=== PATIENT | male | born 1950 | race Caucasian/White ===

== ENCOUNTER 2017-01-20 10:41 | Inpatient (IN) | payer OTHER, MEDICARE ==
[2017-01-20] MEDS ORDERED: ONDANSETRON 4 MG/2 ML VIAL IVP PRN (13:09)
[2017-01-20] MEDS ORDERED: ONDANSETRON DISINTEGRATING 4 MG TAB PO PRN (13:09)
[2017-01-20] MEDS ORDERED: ACETAMINOPHEN 325 MG TAB PO PRN (13:40)
[2017-01-20] MEDS ORDERED: diphenhydrAMINE 50 MG CAP PO PRN ×2 (13:40→14:07)
[2017-01-20] MEDS ORDERED: predniSONE 20 MG TAB PO PRN (13:40)
[2017-01-20] MEDS ORDERED: methylPREDNISolone SOD SUCC 125 MG/2 ML VIAL IVP PRN (13:40)
[2017-01-20] MEDS ORDERED: NS 1,000 ML IV SCH (13:45)
[2017-01-20] MEDS: NS 1,000 ML IV SCH ×2 (13:46→20:23)
[2017-01-20] MEDS ORDERED: diphenhydrAMINE 25 MG CAP PO PRN (14:10)
--- NOTE | 2017-01-20 14:23 | CPEKG ---
Heart Rate: 70 RR Interval: 857 P-R Interval: 172 QRSD Interval: 100 QT Interval: 376 QTC Interval: 406 P [place]: 46 QRS [place]: 2 T Wave [place]: -3 EKG Severity - BORDERLINE ECG - EKG Impression: SINUS RHYTHM EKG Impression: BORDERLINE T ABNORMALITIES, INFERIOR LEADS Electronically Signed By: Luke Interiano 20-Jan-2017 17:58:30
[2017-01-20] MEDS: CALCITONIN 200 UNITS/ML SYR SC SCH ×2 (14:29→21:19)
[2017-01-20] MEDS: HEPARIN 5,000 UNIT/0.5 ML SYR SC SCH ×2 (14:30→21:17)
[2017-01-20] MEDS: predniSONE 20 MG TAB PO SCH (14:36)
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
[2017-01-20] MEDS ORDERED: traZODone 50 MG TAB PO PRN (21:27)
[2017-01-20] MEDS: ACETAMINOPHEN 325 MG TAB PO PRN (23:19)
[2017-01-21] MEDS: ACETAMINOPHEN 325 MG TAB PO PRN ×2 (03:14→10:11)
[2017-01-21] MEDS: NS 1,000 ML IV SCH ×3 (03:16→22:11)
[2017-01-21 05:58] LABS: HEMATOCRIT 36.6 % (40.0-51.0); HEMOGLOBIN 11.8 g/dL (13.7-17.5); MEAN CELL HEMOGLOBIN 27.6 pg (27.9-34.1); MEAN CELL HEMOGLOBIN CONCENTR. 32.2 g/dL (32.4-36.7); MEAN CELL VOLUME 85.7 fL (81.5-99.8); RED BLOOD CELL COUNT 4.27 10^6/uL (4.40-6.38); RED CELL DISTRIBUTION WIDTH 12.9 % (11.5-15.2)
[2017-01-21 06:06] LABS: ALANINE AMINOTRANSFERASE 26 IU/L (21-72); ALBUMIN 3.8 g/dL (3.5-5.0); ALKALINE PHOSPHATASE 72 IU/L (38-126); ANION GAP 13 mEq/L (8-16); ASPARTATE AMINOTRANSFERASE 20 IU/L (17-59); BILIRUBIN,TOTAL 0.5 mg/dL (0.1-1.4); CALCIUM 10.1 mg/dL (8.5-10.4); CARBON DIOXIDE 17 mEq/l (22-31); CHLORIDE 110 mEq/L (97-110); CREATININE 2.8 mg/dL (0.7-1.3); GLOMERULAR FILTRATION RATE 23; GLUCOSE 132 mg/dL (70-100); POTASSIUM 4.5 mEq/L (3.5-5.2); SODIUM 140 mEq/L (134-144); TOTAL PROTEIN 6.5 g/dL (6.3-8.2)
[2017-01-21] MEDS: HEPARIN 5,000 UNIT/0.5 ML SYR SC SCH ×3 (06:25→21:06)
[2017-01-21] MEDS ORDERED: NON-FORMULARY NEW DRUG (Lansoprazole [Prevacid] 15 MG) PO SCH (09:00)
[2017-01-21] MEDS: CALCITONIN 200 UNITS/ML SYR SC SCH ×2 (10:07→10:20)
[2017-01-21] MEDS: amLODIPine BESYLATE 5 MG TAB PO SCH (10:08)
[2017-01-21] MEDS: ATORVASTATIN CALCIUM 20 MG TAB PO SCH (10:08)
[2017-01-21] MEDS: METOPROLOL SUCCINATE XR 50 MG TAB PO SCH (10:09)
[2017-01-21] MEDS: PANTOPRAZOLE SODIUM 40 MG TAB PO SCH (10:11)
[2017-01-21] MEDS: predniSONE 20 MG TAB PO SCH (10:11)
[2017-01-21] MEDS: TESTOSTERONE TD SCH (10:15)
[2017-01-21] MEDS ORDERED: diphenhydrAMINE 25 MG CAP PO ONE ×3 (10:38→21:00)
[2017-01-21] MEDS ORDERED: NS 1,000 ML IV SCH (10:38)
[2017-01-21] MEDS ORDERED: diphenhydrAMINE 50 MG CAP PO PRN (10:38)
[2017-01-21] MEDS ORDERED: methylPREDNISolone SOD SUCC 125 MG/2 ML VIAL IVP PRN (10:38)
[2017-01-21] MEDS ORDERED: ACETAMINOPHEN 325 MG TAB PO PRN (10:38)
[2017-01-21] MEDS ORDERED: NS IV ONE (10:38)
[2017-01-21] MEDS ORDERED: predniSONE 20 MG TAB PO PRN (10:38)
[2017-01-21] MEDS ORDERED: INFLIXIMAB IV ONE (10:38)
[2017-01-21] MEDS ORDERED: diphenhydrAMINE 25 MG CAP PO PRN (10:44)
[2017-01-21] MEDS ORDERED: diphenhydrAMINE 50 MG CAP PO ONE (10:45)
[2017-01-21] MEDS: FINASTERIDE 1 MG PO SCH (12:04)
--- NOTE | 2017-01-21 14:17 | HOSPPROG ---
Hospitalist Progress Note Assessment/Plan: #JOSÉ LUIS on CKD: improved with IVFs. Due to hypercalcemia with untreated sarcoid. BL 2.2. FU Mally next week #Hypercalcemia: resolved with IVFs, calcitonin #Systemic sarcoidosis: has been off Remicade for months bc Medicare will not cover. Spoke with Dr. Davis who recommended Remicade here and short course pred 40mg x 1 week #HTN: BP stable. Holding ACEI and Lasix with JOSÉ LUIS #TWIs: no cardiac sxs. His PCP can arrange outpatient stress #Diet: renal #DVT ppx: SQH #Disp: warrants inpatient admission to monitor Remicade infusion, IVFs Subjective: headache last night and this morning Objective: Vital Signs Temp Pulse Resp BP Pulse Ox 36.4 C 71 16 106/77 92 01/21/17 11:30 01/21/17 11:30 01/21/17 11:30 01/21/17 11:30 01/21/17 11:30 Laboratory Results 01/21/17 05:41 01/21/17 05:41 01/20/17 01/21/17 01/22/17 05:59 05:59 05:59 Intake Total 1150 120 Output Total 1425 825 Balance -275 -705 - Physical Exam Constitutional: no apparent distress Eyes: PERRL Ears, Nose, Mouth, Throat: moist mucous membranes Cardiovascular: regular rate and rhythym, no murmur, rub, or gallop Respiratory: no respiratory distress, no rales or rhonchi Gastrointestinal: normoactive bowel sounds, soft, non-tender abdomen Genitourinary: no bladder fullness Skin: warm Musculoskeletal: full muscle strength Neurologic: AAOx3, CN II-XII Intact ICD10 Worksheet Patient Problems: Problems Problem Status Onset Sarcoid Acute
[2017-01-22 03:53] VITALS: RESP 16
[2017-01-22] MEDS: HEPARIN 5,000 UNIT/0.5 ML SYR SC SCH (04:57)
[2017-01-22 05:42] LABS: ANION GAP 9 mEq/L (8-16); CALCIUM 9.2 mg/dL (8.5-10.4); CARBON DIOXIDE 18 mEq/l (22-31); CHLORIDE 115 mEq/L (97-110); CREATININE 2.5 mg/dL (0.7-1.3); GLOMERULAR FILTRATION RATE 26; GLUCOSE 109 mg/dL (70-100); POTASSIUM 4.2 mEq/L (3.5-5.2); SODIUM 142 mEq/L (134-144)
[2017-01-22] MEDS: NS 1,000 ML IV SCH (06:09)
[2017-01-22 07:55] VITALS: BP 124/82; TEMP 98; O2SAT 92
[2017-01-22] MEDS: ATORVASTATIN CALCIUM 20 MG TAB PO SCH (08:45)
[2017-01-22] MEDS: amLODIPine BESYLATE 5 MG TAB PO SCH (08:45)
[2017-01-22] MEDS: METOPROLOL SUCCINATE XR 50 MG TAB PO SCH (08:45)
[2017-01-22] MEDS: PANTOPRAZOLE SODIUM 40 MG TAB PO SCH (08:46)
[2017-01-22] MEDS: predniSONE 20 MG TAB PO SCH (08:47)
[2017-01-22] MEDS: FINASTERIDE 1 MG PO SCH (08:48)
[2017-01-22 08:52] VITALS: PULSE 64
--- NOTE | 2017-01-22 08:53 | HOSPPROG ---
Hospitalist Progress Note Assessment/Plan: patient is a 66-year-old male who was being seen at the [facility]phrology Clinic and it was noted that he had hypercalcemia as well as elevation in his creatinine. Has a history of systemic sarcoid. He was sent to the hospital for further evaluation. Today is my 1st encounter with the patient. Chart reviewed. #JOSÉ LUIS on CKD: improved with IVFs. Due to hypercalcemia with untreated sarcoid. BL 2.2. FU Mally next week Baseline creatinine is 2.2 and is at 2.5 today #Hypercalcemia: resolved with IVFs, calcitonin #Systemic sarcoidosis has been off Remicade for months bc Medicare will not cover. Dr. Davis who recommended Remicade here and short course pred 40mg x 1 week the Remicade has really helped his symptoms in the past #HTN: BP stable. Holding ACEI and Lasix with JOSÉ LUIS #TWIs: no cardiac sxs. PCP can arrange outpatient stress #Diet: renal #DVT ppx: SQH #Disp: dc today with close f/u with Dr Bal Subjective: Justo is feeling well/anxious to be dc. Objective: Vital Signs Temp Pulse Resp BP Pulse Ox 36.7 C 64 16 124/82 H 92 01/22/17 07:53 01/22/17 08:45 01/22/17 07:53 01/22/17 08:45 01/22/17 07:53 Laboratory Results 01/21/17 05:41 01/22/17 04:55 01/21/17 01/22/17 01/23/17 05:59 05:59 05:59 Intake Total 1150 5988 Output Total 0379 6945 Balance -625 1693 - Physical Exam Constitutional: no apparent distress, appears nourished, not in pain Eyes: PERRL Ears, Nose, Mouth, Throat: hearing normal Cardiovascular: regular rate and rhythym, no murmur, rub, or gallop Respiratory: no respiratory distress Gastrointestinal: normoactive bowel sounds Skin: warm Musculoskeletal: no muscle tenderness Neurologic: AAOx3 Psychiatric: interacting appropriately, not anxious ICD10 Worksheet Patient Problems: Problems Problem Status Onset Sarcoid Acute
[2017-01-22] MEDS: TESTOSTERONE TD SCH (09:25)
--- NOTE | 2017-01-22 10:47 | GDS ---
[f rep st] DISCHARGE SUMMARY DISCHARGE DIAGNOSES: 1. Acute kidney injury on chronic kidney disease. 2. Hypercalcemia. 3. Systemic sarcoidosis. 4. Hypertension. 5. T-wave inversions without cardiac symptoms. BRIEF HISTORY: The patient is a 66-year-old male with a history of systemic sarcoid, chronic kidney disease, and prior hypercalcemia. He presented from the Nephrology Clinic with acute kidney injury and hypercalcemia. He had a creatinine of 3.6, with a baseline of 2.2, and a calcium of 12.2. In addition, he has been off Remicade for 6 months because Medicare does not cover. During his stay he was treated with hydration. His diuretic and PATY inhibitor were held. He also was given a dose of Remicade. It is recommended that he take steroids for a total of 7 days. He will further follow up with both Dr. Bal and Dr. Davis in the outpatient setting. HOSPITAL COURSE: 1. Acute kidney injury on chronic kidney injury. His creatinine today is 2.5. I reviewed with Nephrology, and they are fine with this. They will follow up with him next week. Will continue holding his PATY inhibitor, as well as his diuretic. 2. Hypercalcemia, resolved with fluids and calcitonin. 3. Systemic sarcoidosis, has been off Remicade for months. He got a dose here and will be on a short dose of prednisone total of a week. 4. Hypertension. Blood pressure is stable being on Norvasc alone. 5. T-wave inversions. Will have him follow up with his doctor for outpatient stress test. He has no cardiac symptoms. CONDITION AT DISCHARGE: Stable. Blood pressure is 124/82, respiratory rate is 16, pulse is 64, temperature is 36.7 Celsius, O2 sats on room air 92%. MEDICATIONS AT DISCHARGE: Please see the EMR. DISCHARGE INSTRUCTIONS: 1. Further follow up with Dr. Bal. 2. Take the prednisone for 4 more days. 3. If he develops fever, chills, chest pain, or shortness of breath, return to the ER. /[id number]/MODL MTDD
== END 2017-01-22 11:22 | disposition home or self-care (01) | DRG 684 ==
LOC: F3E 12:34 → OBSVTOIN 01-21 13:25
PROVIDERS: ADMIT Internal Medicine; ATTEND Internal Medicine
PROC: 3E0330M Introduction of Antineoplastic, Monoclonal Antibody, into Peripheral Vein, Percutaneous Approach (ICD-10-PCS; principal; 2017-01-21)
DX: N17.9 Acute kidney failure, unspecified (principal); D86.89 Sarcoidosis of other sites; E83.52 Hypercalcemia; I12.9 Hypertensive chronic kidney disease with stage 1 through stage 4 chronic kidney disease, or unspecified chronic kidney disease; N18.9 Chronic kidney disease, unspecified
CPT/HCPCS: G0378; J0630; J1745